=== PATIENT | female | born 1985 | race Caucasian/White ===

== ENCOUNTER 2022-08-23 21:04 | Emergency (ER) | payer OTHER, SELFPAY ==
[2022-08-23 21:07] VITALS: BP 115/81; PULSE 82; RESP 16; TEMP 36.2; O2SAT 100
--- NOTE | 2022-08-23 21:48 | ED.GENADULT ---
HPI - General Adult General Chief complaint: Psychiatric Symptoms <Gallo Vega MD - Last Filed: 08/24/22 06:43> Stated complaint: psychiatric issues <Gallo Vega MD - Last Filed: 08/24/22 06:43> Time Seen by Provider: 08/23/22 21:15 <Gallo Vega MD - Last Filed: 08/24/22 06:43> History of Present Illness HPI narrative: 37-year-old female presenting the emergency department for evaluation of bizarre behavior. Patient works as a associate financial representative in [place] and is traveling to [place] [employer]. Patient states he has been traveling for the last 72 hours and has not been sleeping well. Patient went [place] a bar [place] of the [place] and was giving way her dog her car and other personal belongings. Patient states that she is being followed and that she was just trying to give her things away because she will not be needing them. Patient is unwilling to share details of who she feels is following her. Patient did tell the ship officer that she feels the devil is out to get her. Please notify the patient's parents who live in the [facility] and they are in route to the emergency department. Estimated time of arrival for the parents is midnight. Patient was agreeable to stay to be medically evaluated. Other than the paranoia and bizarre behavior patient denies any complaints. Patient does feel that this behavior is out of character for herself. <Gallo Vega MD - Last Filed: 08/24/22 06:43> Related Data Allergies/adverse reactions: Allergies Allergy/AdvReac Type Severity Reaction Status Date / Time latex Allergy Unknown Verified 08/23/22 21:43 <Gallo Vega MD - Last Filed: 08/24/22 06:43> Review of Systems Review of Systems: CONSTITUTIONAL: Denies fever, chills, or sweats. EYES: Denies visual changes, redness, or discharge. ENT: Denies rhinorrhea, congestion, sore throat, or otalgia. CARDIOVASCULAR: Denies chest pain, palpitations, or edema. RESPIRATORY: Denies cough or dyspnea. GASTROINTESTINAL: Denies abdominal pain, nausea, vomiting, or diarrhea. GENITOURINARY: Denies dysuria or hematuria. SKIN: Denies rash or itching. MUSCULOSKELETAL: Denies back pain, joint pain, or myalgia. NEUROLOGIC: Denies headache, numbness, or weakness. PSYCHIATRIC: Denies suicidal homicidal ideation. Patient is paranoid, see HPI <Gallo Vega MD - Last Filed: 08/24/22 06:43> PMFSH Social History Social History: Social History Substance use type: does not use <Gallo Vega MD - Last Filed: 08/24/22 06:43> Exam Narrative: APPEARANCE: Well appearing, no pain, no distress, well-nourished. HEAD: normocephalic, atraumatic. EYES: PERRLA/EOMI, conjunctivae clear. NOSE: Normal no drainage EARS:TMS clear with good light reflex. THROAT: Pharynx clear, no exudate. NECK: Supple. No adenopathy, no masses. RESPIRATORY: Airway patent, respirations nonlabored. Clear to auscultation bilaterally, no rales, rhonchi, wheezing. CARDIOVASCULAR: Regular rate and rhythm without murmurs rubs or gallops. ABDOMINAL: Soft, nontender, nondistended, normal bowel sounds MUSCULOSKELETAL: Moves all extremities. Strength/ROM intact, No edema, No calf tenderness. NEURO: Alert. Cranial nerves II through XII intact. Grossly intact SKIN: Warm, dry. Normal Color PSYCHIATRIC: Normal affect/mood. Paranoid delusional <Gallo Vega MD - Last Filed: 08/24/22 06:43> Course Course Emergency Course: Patient does agree that his behavior is unusual for her. Patient was agreeable to stay for medical clearance. <Gallo Vega MD - Last Filed: 08/24/22 06:43> Reevaluation(s) Reevaluation #1: Patient is medically cleared to be evaluated by the crisis counselor. Patient is also medically cleared for inpatient psychiatric placement as needed. <Gallo Vega MD - Last Filed: 08/24/22 06:43> Reevaluation #2: Patient was too agitated to be evaluated by the crisis counselor. Patient was treated with
[2022-08-23 22:03] LABS: Basophils Percent Auto 0.7 % (0.2-1.2); Eosinophils Percent Auto 0.3 % (0-4.4); Hematocrit 44.1 % (37.0-47.0); Hemoglobin 14.8 g/dL (12.0-15.0); Immature Granulocyte Absolute 0.01 K/mm3 (0.00-0.031); Immature Granulocyte Percent A 0.2 % (0-0.5); Lymphocytes Absolute Auto 1.17 K/mm3 (0.9-3.2); Lymphocytes Percent Auto 19.4 % (18.3-44.2); Mean Corpuscular HGB Conc 33.6 g/dl (32-36); Mean Corpuscular Hemoglobin 30.3 pg (26-34); Mean Corpuscular Volume 90.4 fl (80-100); Mean Platelet Volume 9.2 fl (7.4-10.4); Monocytes Absolute Auto 0.5 K/mm3 (0.1-0.6); Monocytes Percent Auto 8.4 % (2.6-8.5); Neutrophils Absolute Auto 4.3 K/mm3 (1.3-6.7); Platelet Count Result 305 k/mm3 (150-375); Red Blood Count 4.88 M/mm3 (4.2-5.4)
[2022-08-23 22:09] LABS: Appearance Urine Slightly Cloudy (Clear); Bilirubin Urine 1+ (Negative); Blood Urine Negative (Negative); Color Urine Yellow (Yellow); Glucose Urine UA Negative (Negative); Ketones Urine Trace mg/dL (Negative); Leukocyte Esterase Ur Negative LEU/UL (Negative); Nitrate Urine Negative (Negative); Protein Urine 2+ mg/dL (Negative); Specific Grav Ur 1.025 (1.001-1.035); pH Urine 6.5 (5.0-9.0)
[2022-08-23 22:13] LABS: Add Urine Microscopic? YES; Mucus Urine Heavy /lpf; RBC Urine 0-2 /hpf (0-2); Squamous Epithelial Cell Urine Few /hpf (Few); WBC Urine 0-3 /hpf
[2022-08-23 22:14] LABS: Alanine Aminotransferase 18 U/L (6-35); Albumin Level 5.1 g/dL (3.5-5.1); Alkaline Phosphatase 49 U/L (38-126); Anion Gap 15 mmol/L (8-16); Aspartate Amino Transferase 25 U/L (14-36); Bilirubin,Total 0.8 mg/dL (0.2-1.3); Blood Urea Nitrogen 12 mg/dL (7-17); Calcium 9.2 mg/dL (8.4-10.2); Carbon Dioxide 27 mmol/L (22-30); Chloride 97 mmol/L (98-107); Estimated CRCL calculation 85 ml/min; Estimated Glomerular Filt Rate > 60; Glucose 108 mg/dL (65-110); Potassium 3.6 mmol/L (3.4-5.0); Sodium 139 mmol/L (137-145)
[2022-08-23 22:15] LABS: Acetaminophen < 10 ug/mL (10-30); Ethanol < 10 mg/dL (<10); Salicylate < 1.0 mg/dL (2-20)
[2022-08-23 22:24] LABS: Amphetamine Screen Urine Negative (Negative); Barbiturate Screen Urine Negative (Negative); Benzodiazepines Screen Urine Negative (Negative); Cannabinoid Screen Urine Negative (Negative); Cocaine Screen Urine Negative (Negative); Methadone Screen Urine Negative (Negative); Opiate Screen Urine Negative (Negative); Phencyclidine Screen Urine Negative (Negative)
--- NOTE | 2022-08-23 23:33 | PC.NURSE ---
This RN as well as Veronica RN to get medications but the patient has refused medication
--- NOTE | 2022-08-23 23:59 | PC.NURSE ---
Per ED Charge nurse Julissa Patient does not need any more phone calls until seen by crisis. Patient is not able to be on her cell phone until seen by crisis
--- NOTE | 2022-08-24 | PC.NURSE ---
Crisis on way to evaluate the patient
[2022-08-24 00:03] LABS: SARS-CoV-2 RNA PCR Negative
[2022-08-24] MEDS: HALOPERIDOL LACTATE 5 MG/ML VIAL IM (01:56)
--- NOTE | 2022-08-24 02:02 | PC.NURSE ---
Patient refused to talk to crisis and stated, I will try again tomorrow. I cannot talk tonight
--- NOTE | 2022-08-24 03:25 | PC.NURSE ---
Patient belongings went home with the patient parents. Okay with ED Charge Nurse Julissa
--- NOTE | 2022-08-24 03:26 | PC.NURSE ---
Parents Phone numbers when the patient wakes up Father: [phone] Mother: [phone]
[2022-08-24 07:01] VITALS: BP 122/73; PULSE 95; RESP 18; TEMP 36.3; O2SAT 100
--- NOTE | 2022-08-24 07:20 | PC.NURSE ---
Assumed care of pt. at this time. Report from STEVO Quan
[2022-08-24 09:59] VITALS: BP 137/82; PULSE 68; RESP 14; O2SAT 98
== END 2022-08-24 10:00 | disposition home or self-care (01) ==
PROVIDERS: Emergency Medicine; Emergency Provider Emergency Medicine
DX: F29 Unspecified psychosis not due to a substance or known physiological condition (principal); Z20.822 Contact with and (suspected) exposure to COVID-19
CPT/HCPCS: 36415; 80053; 80307; 81001; 81025; 83735; 84443; 85025; 96372; 99284; C9803; J1630; U0003; U0005